=== PATIENT | female | born 1980 | race Caucasian/White ===

== ENCOUNTER 2024-03-19 13:27 | Outpatient (CLI) | payer OTHER ==
--- NOTE | 2024-03-19 14:31 | SLEEP CARE CONSULTATION ---
Information from patient questionnaire entered by Vilma Morillo. I have reviewed and concur with the information entered by Vilma Morillo. This document represents the service I personally performed and the decisions made by me, Alexandria Lopez ARNP. History of Present Illness Service Date and Time: 03/19/2024 1327 Reason for Visit: New patient Chief Complaint: reports: Insomnia, Fatigue Date of Onset: 2+YRS Usual bedtime: 2100 Time it takes to fall asleep: 15-20MINS Snores at night: Yes Observed to quit breathing while asleep: No Sleeps alone due to snoring: No Number of times waking at night: 1-3 Reasons for waking at night: reports: Pain, Bathroom, Other (UNKNOWN) Toss, Turn, or Twitch while sleeping: Yes Recalls having dreams: Yes Usually gets out of bed at: 7953-2379 Feels refreshed in the morning: No Morning headache: No Sleepy or fatigued during the day: Yes Ever fallen asleep while driving: No Takes day naps: Yes Dreams during day naps: No Prior sleep studies: Yes Additional HPI information: I had the pleasure of seeing EMMANUEL ALMARAZ today regarding the possibility of her having a sleep disorder. Her current complaints are fatigue and insomnia. She says she is tired all the time. She spoke with her PCP who sent her here for evaluation. She says occasionally she feels some anxiety/depression and her brain will not shut off and she cannot sleep. She says it happens about 2 times a month. She brings in a HST dated 08/06/2016 through [facility] showing an AHI of 11.5 and letty oxygen saturation of 85%. The patient tells me that she normally goes to bed around 9 pm, and it takes her approximately 15-20 minutes to fall asleep. She has been told that she snores sometimes at night. She has not been observed to stop breathing in her sleep. Her bed partner can still sleep in the same bed. She can recall waking up on the average of 1-3 times during the night. Most of the time she wakes up because of bathroom, pain or unknown reasons. She has not awakened for her own snoring, choking, and having to gasp for air. There is a lot of tossing and turning in her sleep. Generally she can recall having dreams. She usually wakes up at 6-7 AM and does not feel refreshed. She usually does have a morning headache with her sinus/allergies. During the day she complains of feeling sleepy and fatigued. She has never fallen asleep while driving nor has any accident due to sleepiness. She usually naps 1-2 times a week for about 30-40 minutes during the day. If she naps, upon falling asleep during the day she denies having vivid dreams. She reports having impaired concentration during the day. There is no somniloquy (sleep talking) or somnambulism (sleep walking). - Parasomnia Symptoms Ever been unable to move upon waking from sleep: No Walks in sleep: No Talks in sleep: No Ever acted out dreams in sleep: No Ever felt weak in the knees when startled or emotional: No Bothered by creepy, crawly, restless sensations in legs: Yes Problems with memory or concentration: Yes Subjective Initial [place] Sleepiness Scale score: 8 (03/03/24) Past Medical History Past Medical History: reports: Anxiety, Depression, Other (HORMONE THERAPY) Social History The patient's occupation is a [employer]. Patient is and lives in [place]. Have you smoked in the past 12 months: No Alcohol use: Yes Alcohol amount and frequency: 8-12 OZ 1-2 X YR Caffeine use: Yes Caffeine amount and frequency: 8OZ 1-2 X A DAY Family History Family history of sleep disordered breathing: Yes Family Hx Sleep Apnea: Father: Sleep apnea - Treated Allergies and Home Medications Known drug allergies: Yes ( LISTED) Drug allergies reviewed: Yes Home medication list reviewed: Yes (as listed) Allergy and home medication list: Allergies buspirone Allergy (Verified 03/17/24 11:55) citalopram Allergy (Verified 03/17/24 11:55) Home Medications Medication Instructions Recorded Confirmed Last Taken Type Estradiol [Estrace] See Rx Instructions .ROUTE .COMPLEX 03/19/24 03/19/24 Unknown History Fluoxetine HCl [Prozac] See Rx Instructions .ROUTE .COMPLEX 03/19/24 03/19/24 Unknown History Progesterone,Micronized See Rx Instructions .ROUTE .COMPLEX 03/19/24 03/19/24 Unknown History [Progesterone Micronized] Semaglutide [Wegovy] See Rx Instructions .ROUTE .COMPLEX 03/19/24 03/19/24 Unknown History buPROPion [Wellbutrin Xl] See Rx Instructions .ROUTE .COMPLEX 03/19/24 03/19/24 Unknown History Review of Systems Weight gain over past 5 years: 100 Weight loss over past 5 years: 40 in last 8 months Cardiovascular: denies: high blood pressure Gastrointestinal: reports: heartburn, diarrhea Urinary: reports: incontinence Neurological: reports: headaches, gait or balance problems Psychiatric: reports: anxiety, depression, claustrophobia Ear/Nose/Throat: reports: nasal congestion, sinus problems, wisdom teeth removed. denies: tonsillectomy Endocrine: reports: sluggishness, too hot or cold Musculoskeletal: reports: joint pain, neck pain, back pain, muscle pain or cramping Immunologic: reports: sneezing, rash, itching, allergies to food or environment Physical Exam Vital signs obtained and entered by: VILMA Alvarado MA Blood Pressure: 121/73 (LEFT ARM) Cuff size: regular Heart Rate: 70 O2 Saturation: 99 Height: 5 ft 2 in Weight: 206 lb 9.6 oz Body Mass Index: 37.8 BMI Classification: Obese Neck circumference: 14.5 Mouth and throat: narrow oropharynx Soft palate: long Hard palate: normal Uvula: normal Uvula visualization: 25% Mallampati Class III Tongue: normal in size Tonsils: 1+ Neck: normal w/o lymphadenopathy or thyromegaly Heart: regular rate and rhythm Lungs: clear bilaterally Impression and Plan 1. Suspected Obstructive Sleep Apnea-Hypopnea Syndrome, as suggested by a history of loud and irregular snoring, unrefreshed sleep, cognitive impairment, and excessive daytime sleepiness. Narrow oropharynx and obesity are common predisposing factors for obstructive sleep apnea-hypopnea syndrome. I recommend proceeding to polysomnography to confirm the diagnosis and to assess severity. If the patient has significant sleep disordered breathing, a manual CPAP titration study will also be performed to find the optimal treatment pressure. I informed the patient of what the sleep studies involve and after some discussion, obtained agreement to proceed. The pathophysiology of obstructive sleep apnea-hypopnea syndrome was discussed with the patient and health risks of cardiovascular and cerebrovascular disease if not treated. Risks of drowsy driving discussed in detail and patient advised to avoid long distance driving and to crop puller at the first sign of drowsiness. Patient agreed to plan. * Schedule polysomnography. * Avoid long distance driving or driving when feeling sleepy. * Avoid alcohol, sedative and muscle relaxant around bedtime. * Attempt to lose weight. * Review instructions provided by trained office staff on how to prepare for the sleep study. * Return for follow-up after sleep study completed. Counseling Topics: Weight loss health impact Plan: PSG/HST and follow up Visit Type: In Office Provider Statement: I spent 100% of the Face to Face Visit with the patient with greater than 50% spent counseling the patient and coordination of care.
--- NOTE | 2024-03-19 14:32 | Sleep Patient Instructions ---
Sleep Center Visit Summary - Patient Visit Information Reason for Visit: Initial consult for evaluation of sleep disordered breathing and other sleep issues. - Patient Instructions Instructions Attached: Sleep Study Home Monitor Additional Instructions: You will be completing a sleep study, either an in-lab polysomnography (PSG) or home sleep study (HST). You will follow-up in the sleep care office after the sleep study is completed to hear the results and talk about therapy, if needed. You will be called by our office staff to schedule this appointment, but you may contact us with any questions. - Clinic Information Contact: Merged with [facility] [address] [place] [address] [email or web address] T: [phone]
[2024-03-19 14:38] VITALS: BP 121/73; O2SAT 99
== END 2024-03-19 13:28 | disposition home or self-care (01) ==
LOC: SC 13:27
PROVIDERS: ATTEND Nurse Practitioner Family
DX: G47.10 Hypersomnia, unspecified (principal); R06.83 Snoring; G47.8 Other sleep disorders; E66.9 Obesity, unspecified; Z68.37 Body mass index [BMI] 37.0-37.9, adult; R51.9 Headache, unspecified
CPT/HCPCS: 99203; 99212